=== PATIENT | female | born 1935 | race Caucasian/White ===

== ENCOUNTER → 2016-04-26 | Outpatient (CLI) | payer OTHER | LOC: MMPC 11:11 | PROVIDERS: ATTEND Internal Medicine | DX: M81.0 Age-related osteoporosis without current pathological fracture (principal) | CPT/HCPCS: G0463; J0897 ==

== ENCOUNTER → 2016-06-29 | Outpatient (CLI) | payer OTHER | LOC: LAB 13:24 | PROVIDERS: ATTEND Physician Assistant Medical | DX: R30.0 Dysuria (principal) | CPT/HCPCS: 87077; 87088; 87186 ==

== ENCOUNTER → 2016-09-30 | Outpatient (CLI) | payer OTHER ==
[2016-09-30 15:02] LABS: BUN/CREATININE RATIO 21.25 (6-20); CALCIUM 9.6 mg/dL (8.7-10.7); SERUM ALBUMIN 3.9 g/dL (3.5-4.8)
== END ==
LOC: LAB 10:51
PROVIDERS: ATTEND Physician Assistant Medical
DX: E83.51 Hypocalcemia (principal); R53.83 Other fatigue; R10.84 Generalized abdominal pain
CPT/HCPCS: 80053

== ENCOUNTER → 2016-10-28 | Outpatient (CLI) | payer OTHER | LOC: MMPC 11:11 | PROVIDERS: ATTEND Internal Medicine | DX: M81.0 Age-related osteoporosis without current pathological fracture (principal) | CPT/HCPCS: G0463; J0897 ==

== ENCOUNTER → 2016-11-16 | Outpatient (CLI) | payer OTHER ==
[2016-11-16 16:52] LABS: WBC, BODY FLUID 1.614 10*3/uL
--- NOTE | 2016-11-16 21:27 | DI ---
CT GUIDANCE/NDL PLACEMENT,11/16/2016 1:04 PM: Clinical History: Cyst in the left pelvic area. Previous Exam: CT abdomen pelvis performed October 06, 2016 Procedure: Risks, benefits and alternatives were explained to the patient and informed written conse nt obtained. The patient was placed supine on the CT table, and CT images obtained through the pelvis and left upp er extremity, and demonstrate a large stable 5.1 x 4.2 cm cystic mass just deep to the iliacus. Markers were placed along the soft tissues overlying the left hip. This area was prepped and draped in usual sterile fashion and 1% lidocaine used for local anesthesia. A 22-gauge spinal needle was advanced for the purposes of anesthesia. During imaging, it was apparent that it would be used here to drain the fluid collection near the fem oral neck rather than to enter the peritoneum and drain the pelvic fluid collection. Fluid was then removed through the 22-gauge needle. Approximately 265 cc of fluid was then removed. T his fluid was dark brown and serous. Repeat imaging after removal of the fluid demonstrated significant decrease in the size of the fluid collection. There was very little remaining fluid after removal of the fluid measuring approximately 1.5 x 2.1 cm. Peripheral vascular calcifications are seen as well. The patient tolerated the procedure well and was sent home in good condition. Findings: Multiple images are obtained at various stages of the aspiration, and demonstrated a large fluid ladan ection surrounding the left hip and within the deep pelvis. The fluid collection after removal of 265 cc was significantly smaller within the pelvis. This was be lieved to not be worth draining. Impression: Successful left periarticular cyst aspiration.
== END ==
LOC: CT 12:58
PROVIDERS: ATTEND Orthopaedic Surgery
DX: N94.89 Other specified conditions associated with female genital organs and menstrual cycle (principal)
CPT/HCPCS: 77012; 87070; 87075; 87205